=== PATIENT | male | born 1950 | race Caucasian/White ===

== ENCOUNTER → 2017-11-06 | Outpatient (CLI) | payer OTHER ==
[~2017-11-06] MED LIST: FBR PO; GLUC500C4 PO; MULT-506 PO; OMEG10007 PO
--- NOTE | 2017-11-06 09:19 | DIAGNOSTIC IMAGING REPORT ---
ULTRASOUND EXAM AAA SCREEN CLINICAL HISTORY: SCREENING FOR AAA COMPARISON STUDY: No previous studies for comparison. FINDINGS: There is no evidence of abdominal aortic dilatation. There is no evidence of iliac artery aneurysm. The maximal aortic diameter was 2.3 cm proximally. IMPRESSION: No evidence of abdominal aortic aneurysm. Electronically signed by: Erick Lanier M.D. 11/06/2017 9:18 AM Dictated Date/Time: 11/06/2017 9:17 AM
== END | disposition home or self-care (01) ==
LOC: C.ULTR 08:44
PROVIDERS: ATTEND Family Medicine
DX: Z13.6 Encounter for screening for cardiovascular disorders (principal)